=== PATIENT | female | born 1940 | race Caucasian/White ===

== ENCOUNTER 2020-11-11 12:05 | Outpatient (CLI) | payer MEDICARE, OTHER | END 2020-11-11 12:06 | disposition short-term general hospital (02) | LOC: EMS 12:05 | DX: R23.2 Flushing (principal); R42 Dizziness and giddiness | CPT/HCPCS: A0425; A0429 ==

== ENCOUNTER 2021-01-02 13:22 | Outpatient (CLI) | payer MEDICARE, OTHER | END 2021-01-02 13:23 | disposition EMS.NT | LOC: EMS 13:22 | DX: E16.2 Hypoglycemia, unspecified (principal) ==

== ENCOUNTER 2022-08-17 18:26 | Outpatient (CLI) | payer MEDICARE, OTHER | END 2022-08-17 23:59 | disposition short-term general hospital (02) | LOC: EMS 18:26 | DX: R42 Dizziness and giddiness (principal); R06.00 Dyspnea, unspecified | CPT/HCPCS: A0425; A0429 ==